=== PATIENT | female | born 1940 | race Caucasian/White ===

== ENCOUNTER → 2016-08-07 10:21 | Outpatient (CLI) | payer MEDICARE, OTHER ==
[2012-11-10 14:41] VITALS: BMI 21.3
[~2016-08-07 10:21] MED LIST: BREO ELLIPTA 11 EACH INH; COZAAR25 MG PO; LODINE500 MG PO; PRAVACHOL20 MG PO; PROAIR HFA8.5 GM INH; WELLBUTRIN100 MG PO; ZANTAC150 MG PO
[2016-08-09 08:20] LABS: IMMUNOGLOBULIN E 443 IU/mL (0-100)
[2016-08-09 11:18] LABS: IMMUNOGLOBULIN A 210 mg/dL (64-422); IMMUNOGLOBULIN G 719 mg/dL (700-1600); IMMUNOGLOBULIN M 44 mg/dL (26-217)
[2016-08-10 10:19] LABS: ANTI-GLOMERULAR BASMENT MEMBRN 4 units (0-20)
[2016-08-10 16:18] LABS: ANCA - ANTIMYELOPEROXIDASE <9.0 U/mL (0.0-9.0); ANCA - ANTIPROTEINASE 3 <3.5 U/mL (0.0-3.5); ANCA - ATYPICAL <1:20 titer (Neg:<1:20); ANCA - CYTOPLASMIC <1:20 titer (Neg:<1:20); ANCA - PERINUCLEAR <1:20 titer (Neg:<1:20)
[2016-08-16 09:11] VITALS: BMI 24.2
== END | disposition home or self-care (01) ==
LOC: D.RT 10:21
PROVIDERS: Internal Medicine Pulmonary Disease
DX: J44.9 Chronic obstructive pulmonary disease, unspecified (principal)

== ENCOUNTER → 2016-08-07 17:35 | Outpatient (CLI) | payer MEDICARE, OTHER ==
[2012-11-10 14:41] VITALS: BMI 21.3
[2016-08-16 09:11] VITALS: BMI 24.2
== END | disposition home or self-care (01) ==
LOC: D.LABREF 17:35
DX: J18.9 Pneumonia, unspecified organism (principal); R04.2 Hemoptysis

== ENCOUNTER 2016-08-16 07:18 | Day surgery (SDC) | payer MEDICARE, OTHER ==
[~2016-08-16] VITALS: Ht 167.6 cm; Wt 68.2 kg
[~2016-08-16 07:18] MED LIST changes: -BREO ELLIPTA 11 EACH INH; -COZAAR25 MG PO; -ZANTAC150 MG PO
[2016-08-16 08:23] LABS: BASOPHILS 0.4 % (0.0-2.0); EOSINOPHILS 2.1 % (0-7); HEMATOCRIT 37.1 % (36.0-48.0); HEMOGLOBIN 12.3 g/dL (12-16); IMMATURE GRANULOCYTES 0.2 % (0-5); LYMPHOCYTES 29.5 % (15-50); MCH 30.2 pg (26.0-34.0); MCHC 33.2 g/dL (31.0-37.0); MCV 91.2 fL (80.0-100.0); MEAN PLATELET VOLUME 9.7 fL (7.4-10.4); MONOCYTES 8.3 % (2-11); NEUTROPHILS 59.5 % (40-80); RBC 4.07 10x6/uL (4.00-5.40); RDW 14.6 % (11.5-14.5); WBC 5.2 10x3/uL (4.8-10.8)
[2016-08-16 08:26] LABS: PLATELET COUNT 262 10x3/uL (130-400)
[2016-08-16 08:32] LABS: APTT 25.5 SECONDS (22.8-39.4); PROTIME 13.1 SECONDS (11.6-15.0)
[2016-08-16] MEDS ORDERED: COZAAR25 MG PO (09:03)
[2016-08-16] MEDS ORDERED: ZANTAC150 MG PO (09:04)
[2016-08-16] MEDS ORDERED: BREO ELLIPTA 11 EACH INH (09:05)
[2016-08-16 09:11] VITALS: BP 138/61; Ht 167.6 cm; Wt 68.2 kg
--- NOTE | 2016-08-16 13:02 | NUR ---
VS TAKING AND PLACED ON POST OP SHEET
--- NOTE | 2016-08-16 14:49 | NUR ---
1230 SERVED FULL LIG DIET , TOLERATED
--- NOTE | 2016-08-16 14:50 | NUR ---
1250 IV DC WITH CATHER TIP INTACT
[2016-08-17 13:18] LABS: FUNGUS STAIN Final report (())
--- NOTE | 2016-08-17 13:49 | OP ---
PATIENT NAME: LUIZA HICKMAN MEDICAL RECORD: [id number] :40 LOCATION:[facility] ADMISSION DATE: SURGEON: DON CLARK MD DATE OF OPERATION: 08/16/2016 PROCEDURE: Fiberoptic bronchoscopy. INDICATION: Ms. Hickman is a 66-year-old female who has history of hemoptysis. The bronchoscopy was carried out to inspect the airway as well as to look for the source of hemoptysis. MONITORING: EKG, pulse, and blood pressure were monitored throughout the procedure. MEDICATIONS: Versed 2 mg IV in divided doses, fentanyl 100 mcg IV in divided doses, atropine 0.6 mg IV, and morphine 4 mg IV. PROCEDURE IN DETAIL: After signing the consent form, the fiberoptic bronchoscope was easily passed through the mouth. The epiglottis was normal. The vocal cords were normal, moving equally on phonation. There was no bleeding. No mass was seen. The main trachea was normal. No blood was seen. The merissa was sharp. The right main bronchus subsegment to the right upper lobe, right middle lobe, right lower lobe within normal range. No endobronchial lesion was seen. No bleeding was seen. The left main bronchus was normal. The subsegment to the left upper lobe lingula, left lower lobe within normal range. No endobronchial lesion was seen and no bleeding was seen. Specimen washing was obtained bilaterally and sent for routine culture and sensitivity, AFB and fungus as well as for cytology. TRANSINT:[id number] Voice Confirmation ID: [id number] DOCUMENT ID: [id number] DON CLARK MD at 1349 CC: [id number] DICTATION DATE: 08/16/16 1029 C[employer] HEAD PUNCHER: 08/16/16 1223 [facility] 08/16/16 [place] [id number]
[2016-08-17 15:22] LABS: ACID FAST SMEAR Negative (()); AFB SPECIMEN PROCESSING Concentration (())
[2016-09-09 15:08] LABS: FUNGUS CULTURE RESULT 1 Candida albicans (()); FUNGUS CULTURE RESULT 2 Penicillium species (()); FUNGUS MYCOLOGY CULTURE Final report (())
== END 2016-08-16 13:30 | disposition home or self-care (01) ==
LOC: D.OPS 07:18
PROVIDERS: Internal Medicine Pulmonary Disease
DX: R04.2 Hemoptysis (principal)